=== PATIENT | male | born 1990 | race Caucasian/White ===

== ENCOUNTER 2018-10-31 12:46 | Emergency (ER) | payer OTHER ==
[2018-10-31] MEDS: IBUPROFEN 600 MG TAB PO (15:38)
[2018-10-31] MEDS: ACETAMINOPHEN 325 MG TAB PO (15:38)
== END 2018-10-31 17:21 | disposition home or self-care (01) ==
LOC: FTE 12:46
DX: S92.421A Displaced fracture of distal phalanx of right great toe, initial encounter for closed fracture (principal); W22.8XXA Striking against or struck by other objects, initial encounter; Y92.9 Unspecified place or not applicable
CPT/HCPCS: 29505; 73630; 99283-25